=== PATIENT | male | born 1975 | race Caucasian/White ===

== ENCOUNTER → 2018-10-21 11:07 | Outpatient (CLI) | payer OTHER ==
--- NOTE | 2018-10-22 14:37 | ST ---
PATIENT:ANN WOODARD MEDICAL RECORD: [id number] SEX: M LOCATION:[facility] ORDER #: ADMISSION DATE: 10/21/18 AGE OF PATIENT: 43 REFERRING PHYSICIAN: INTERPRETING PHYSICIAN: RONEN MCCALL MD DATE OF SERVICE: 10/21/2018 PROCEDURE: Nuclear stress test. INDICATION: Angina, hypertension, hyperlipidemia, syncope. TECHNIQUE: He was exercised on standard Zander protocol for 10 minutes achieving greater than 85% max target heart rate response with 32 mCi of sestamibi injected at peak stress, 10 mCi used previously for rest images. FINDINGS: Gated SPECT reveals preserved ejection fraction at 63% with good wall motion and thickening and brightening throughout all segments. SPECT imaging Cardiolite was used as myocardial fusion agent. There is homogeneous uptake throughout all segments at rest and stress with no evidence of inducible ischemia or previous infarction. OVERALL IMPRESSION: 1. This is a normal nuclear stress test with no evidence of inducible ischemia or previous infarction. 2. Gated SPECT reveals a preserved ejection fraction at 63%. In this patient with ongoing symptomatology, the current scan does not suggest the presence of hemodynamically significant coronary artery disease. Evaluate noncardiac etiology of chest pain. TRANSINT:[id number] Voice Confirmation ID: [id number] DOCUMENT ID: [id number] RONEN MCCALL MD at 1437 CC: [id number] DICTATION DATE: 10/21/18 1600 PROCESS CONSULTANT: 10/22/18 0540 DEP CLI 10/21/18 [place] [id number] [place] [id number]
== END | disposition home or self-care (01) ==
LOC: D.HCCARDIO 11:00
PROVIDERS: ATTEND Internal Medicine Interventional Cardiology
DX: I20.9 Angina pectoris, unspecified (principal)